=== PATIENT | female | born 1995 | race African-American/Black ===

== ENCOUNTER 2017-06-21 15:26 | Emergency (ER) | payer OTHER ==
[~2017-06-21] VITALS: Ht 162.6 cm; Wt 54.4 kg
[~2017-06-21 15:26] MED LIST: NAPROSYN500 MG PO; TIZANIDINE HCL4 MG PO
[2017-06-21 15:29] VITALS: BP 124/70
[2017-06-21] MEDS ORDERED: NAPROSYN500 MG PO (16:12)
== END 2017-06-21 16:25 | disposition home or self-care (01) ==
LOC: ER 15:26
DX: S63.501A Unspecified sprain of right wrist, initial encounter (principal); F10.99 Alcohol use, unspecified with unspecified alcohol-induced disorder; F17.210 Nicotine dependence, cigarettes, uncomplicated; W18.39XA Other fall on same level, initial encounter; Y93.89 Activity, other specified; Y92.89 Other specified places as the place of occurrence of the external cause; Y99.8 Other external cause status

== ENCOUNTER 2019-05-30 10:26 | Emergency (ER) | payer BC, OTHER ==
[~2019-05-30] VITALS: Ht 165.1 cm; Wt 72.6 kg
[~2019-05-30 10:26] MED LIST changes: +LOPERAMIDE 2 MG2 M1 PO; +ZOFRAN ODT4 MG PO
[2019-05-30 10:27] VITALS: BP 120/66
[2019-05-30 10:39] LABS: ABSOLUTE NEUTROPHILS 5.9 thou/uL (1.4-8.2); BASOPHILS 0.6 % (0.0-2.0); EOSINOPHILS 0.6 % (0.0-3.0); HEMATOCRIT 37.6 % (37.0-47.0); HEMOGLOBIN 12.5 gm/dL (12.0-15.0); MCH 29.7 pg (26.0-34.0); MCHC 33.1 g/dL (28.0-37.0); MCV 89.7 fL (80.0-100.0); MONOCYTES 5.9 % (1.0-8.0); PLATELET COUNT 182 thou/uL (150-400); POLYS 64.9 % (36.0-66.0); RBC 4.19 mil/uL (4.20-5.00); RDW 13.4 % (10.5-14.5); WBC 9.1 thou/uL (4.0-11.0)
[2019-05-30 10:47] LABS: ANION GAP 9 mmol/L (7-16); BUN 8 mg/dL (7-18); CALCIUM 9.6 mg/dL (8.5-10.1); CHLORIDE 103 mmol/L (98-107); CO2 22 mmol/L (21-32); CREATININE 0.6 mg/dL (0.6-1.0); GLUCOSE 79 mg/dL (74-106); POTASSIUM 3.7 mmol/L (3.5-5.1); SODIUM 134 mmol/L (136-145)
[2019-05-30 10:54] LABS: SGOT 11 U/L (15-37); SGPT 12 U/L (30-65); TOTAL BILIRUBIN < 0.1 mg/dL (<0.1-1.0); TOTAL PROTEIN 7.6 g/dL (6.4-8.2)
== END 2019-05-30 11:03 | disposition left against medical advice (07) ==
LOC: ER 10:26
PROVIDERS: Emergency Medicine
DX: O26.893 Other specified pregnancy related conditions, third trimester (principal); R10.30 Lower abdominal pain, unspecified; Z3A.32 32 weeks gestation of pregnancy; Z88.6 Allergy status to analgesic agent; Z87.891 Personal history of nicotine dependence